=== PATIENT | male | born 1970 | race Caucasian/White ===

== ENCOUNTER 2020-04-21 11:53 | Outpatient (REF) | payer OTHER, SELFPAY | END 2020-04-21 11:54 | disposition home or self-care (01) | LOC: HO.WFDLDS 11:53 | PROVIDERS: Visit Provider Internal Medicine | DX: Z20.828 Contact with and (suspected) exposure to other viral communicable diseases (principal) | CPT/HCPCS: C9803; U0003 ==

== ENCOUNTER → 2021-07-11 08:38 | Outpatient (BNVA) | payer OTHER, SELFPAY | PROVIDERS: Visit Provider Internal Medicine | DX: S86.119A Strain of other muscle(s) and tendon(s) of posterior muscle group at lower leg level, unspecified leg, initial encounter (principal); M62.89 Other specified disorders of muscle | CPT/HCPCS: 99202 ==

== ENCOUNTER 2021-09-07 10:00 | Outpatient (RCR) | payer OTHER, SELFPAY ==
--- NOTE | 2021-07-20 11:56 | MHC.PT.EP ---
[facility] [place] Office [place] Office [place] Office [address] Justin Olivares [address] [phone] F: [phone] F: [phone] F: [phone] F: [phone] Physical Therapy Plan of Care Date of Evaluation: Date of Surgery: NA Diagnosis: Assessment: Pt IS 50 YO M REFERRED TO PT FROM [facility] (DR JORDAN) WITH R LE PAIN. Pt WITH 2-3 YR HX OF R LE SXS WHICH HE ATTRIBUTES (AT LEAST PARTIALLY). TO AND INCIDENT WHILE RUNNING ON TM AND HEARING POP R CALF/ACHILLES AREA. Pt PRESENTS WITH SIGNIFICANT TIGHTNESS IN R LE MMS (SOME TIGHTNESS IN L ALSO BUT NOT PAINFUL). 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 Pt HAS NOT BEEN EXERCISING STRETCHING FOR 3-4 MONTHS (ALTHOUGH REPORTS NOT MUCH STRETCHING PART OF HIS EXERCISE PROGRAM IN PAST). Pt WITH TTP IN R GASTROC BELLY AND R HS TENDONS WITH TTP R GREATER TROCHANTER, TFL AND GLUT MEDIUS. SHOULD BENEFIT FROM PT TO ADDRESS THESE ISSUES WITH STRETCHING, ST WORK AND STRENGTHENING Frequency and Duration: The patient will be seen 2X/WK X 4 WKS Short Term Goals: 1. I HEP WITH DC EX PLAN (Pt TO RETURN TO TRAINING WITH ADDITION OF STRETCHES AND MODIFICATIONS TO EXS NEEDED) 2. INCREASED ABILITY TO LAY ON L SIDE 3. INCREASED AWARENESS POSTURE AND LB/HIP/LE CARE. [employer] Teller Goals: 1. INCREASED LE ROM FOR HS AND HIP ROTATION (ER/IR) AT LEAST 10 DEGREES EA ON R 2. IMPROVED LEFI 3. DECREASED R LE PAIN AT LEAST 50% WITH ADLS Treatment Plan: Modalities to reduce pain, spasms and effusion. Manual therapy to restore motion and function. Therapeutic exercise to improve strength and flexibility. Neuromuscular re-education for posture and balance. Therapeutic activities to return to functional activities of daily living. Electronically signed by: CASSANDRA KIRBY PT Please sign and return to therapist. Thank you for your referral.
--- NOTE | 2021-10-12 13:49 | MHC.PT.DC ---
[facility] [place] Office [place] Office [place] Office [address] Justin Olivares [address] [phone] F: [phone] F: [phone] F: [phone] F: [phone] Physical Therapy Discharge Report Diagnosis: R LE PAIN Date of Surgery: NA Date of Evaluation: 07/20/21 Date of Discharge: 10/12/21 Treatments to Date: 11 Cancellations to Date: No Shows to Date: Discharge Status: Independent with HEP Discharge Summary: Pt LAST SEEN ON 09/07/21. PER ASSESSMENT BY JUAN M AGUILAR PT,DPT ON THAT DATE Pt has attended 11 sessions since start of care on 07/20/21. Pt has been issued a flexibility and strengthening program for his R>L LE. He continues to exhibit pain with active hip flexion and reports some gains with therapy however he is not confident in his ability for SLS stability or dynamic activities which involve lateral instability/challenges such as playing basketball. He continues to report TTP over psoas and has been educated for manual therapy/self care. He has been encouraged to stretch within gentle ranges and not push into pain. If he loads the R LE he does experience pain. He would likely benefit from imaging such as MRI to rule out pathology such as hip flexor tear. Pt THEN SAW DR JORDAN ON 09/09/21. PER HIS PLAN: 'Plan 1. Persistent hip and ankle pain despite PT. Plan for MRI of the right hip and ankle as next step. Patient will return for a follow-up to review MRI results.' WILL DC PT AT THIS TIME. Pt AWAITING MRI. CONT IF FURTHER PT WARRENTED/PER REFERRAL Electronically signed by: CASSANDRA KIRBY PT Please sign and return to therapist. Thank you for your referral.
== END 2021-10-12 13:49 | disposition home or self-care (01) ==
LOC: HO.PTWFD 10:00
PROVIDERS: Visit Provider Internal Medicine
DX: S86.111D Strain of other muscle(s) and tendon(s) of posterior muscle group at lower leg level, right leg, subsequent encounter (principal); M62.89 Other specified disorders of muscle; M76.899 Other specified enthesopathies of unspecified lower limb, excluding foot
CPT/HCPCS: 97110; 97140; 97162; 97530; 97535

== ENCOUNTER → 2021-09-09 08:44 | Outpatient (BNVA) | payer OTHER, SELFPAY | PROVIDERS: Visit Provider Internal Medicine | DX: Z13.89 Encounter for screening for other disorder (principal) ==

== ENCOUNTER 2023-01-30 08:00 | Outpatient (RCR) | payer OTHER, SELFPAY ==
[2022-07-28 14:32] VITALS: BP 110/78; PULSE 74; O2SAT 96
== END 2023-06-05 10:41 | disposition home or self-care (01) ==
LOC: HO.PTWFD 08:00
PROVIDERS: PCP Physician Assistant; Visit Provider Student in an Organized Health Care Education/Training Program
DX: Z96.641 Presence of right artificial hip joint (principal)
CPT/HCPCS: 97110; 97140; 97162; 97164; 97530; 97535